=== PATIENT | male | born 1985 | race Caucasian/White ===

== ENCOUNTER 2016-12-30 12:47 | Emergency (ER) | payer OTHER, BC ==
[~2016-12-30] VITALS: Ht 167.6 cm; Wt 111.4 kg
[2016-12-30 12:50] VITALS: TEMP 36.8; Ht 167.6 cm; Wt 111.4 kg
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
[2016-12-30 13:12] LABS: BASO % 0.1 %; BASO ABS # 0.01 K/uL (0-0.2); COMPLETE YES; EOS % 1.1 %; HEMATOCRIT 45.3 % (42-52); IG% 0.3 %; LYMPH % 15.7 %; LYMPH ABS # 1.11 K/uL (1.2-3.4); MEAN CELL VOLUME 87.1 fL (80-100); MEAN CORPUSCULAR HEMOGLOBIN 31.7 pg (25-34); MEAN CORPUSCULAR HGB CONC 36.4 g/dl (32-36); MONO % 5.8 %; PLATELET COUNT 195 K/uL (130-400); WHITE BLOOD COUNT 7.06 K/uL (4.8-10.8)
[2016-12-30 13:21] LABS: ISTAT HEMOGLOBIN 15.6 g/dl (14.0-18.0); ISTAT IONIZED CALCIUM 1.25 mmol/l (1.12-1.32)
[2016-12-30 13:28] LABS: BUN/CREATININE RATIO 23.7 (10-20); CALCIUM 9.3 mg/dl (8.5-10.1)
[2016-12-30] MEDS ORDERED: OPTIRAY 320 IV PRN (13:45)
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
[2016-12-30] MEDS ORDERED: ONDANSETRON INJ 2 MG/ML 2 ML VIAL IV STA (14:27)
[2016-12-30] MEDS ORDERED: MoRPHine SULFATE 4 MG/ML 1 ML CARP\\VIAL IV STA (14:27)
[2016-12-30 14:59] VITALS: BP 143/88; PULSE 76; O2SAT 98
== END 2016-12-30 15:00 | disposition short-term general hospital (02) ==
LOC: EDBD 12:47 → C.EDA 12:48
DX: S32.462A Displaced associated transverse-posterior fracture of left acetabulum, initial encounter for closed fracture (principal); S01.312A Laceration without foreign body of left ear, initial encounter; M25.512 Pain in left shoulder; V43.62XA Car passenger injured in collision with other type car in traffic accident, initial encounter; Z87.891 Personal history of nicotine dependence; Z98.890 Other specified postprocedural states

== ENCOUNTER 2017-01-20 22:04 | Emergency (ER) | payer OTHER, BC ==
[~2017-01-20] VITALS: Ht 167.6 cm; Wt 102.4 kg
[2017-01-20 22:07] VITALS: TEMP 37; Ht 167.6 cm; Wt 102.4 kg
[2017-01-20 22:34] VITALS: O2SAT 97
[2017-01-20 22:42] LABS: BASO % 0.4 %; BASO ABS # 0.03 K/uL (0-0.2); COMPLETE YES; EOS % 3.2 %; IG% 0.1 %; LYMPH % 25.2 %; LYMPH ABS # 1.99 K/uL (1.2-3.4); MEAN CELL VOLUME 90.1 fL (80-100); MEAN CORPUSCULAR HEMOGLOBIN 30.8 pg (25-34); MEAN CORPUSCULAR HGB CONC 34.2 g/dl (32-36); MEAN PLATELET VOLUME 9.8 fL (7.4-10.4); MONO % 6.8 %; NEUT % 64.3 %; PLATELET COUNT 320 K/uL (130-400); RED BLOOD COUNT 4.77 M/uL (4.7-6.1); WHITE BLOOD COUNT 7.91 K/uL (4.8-10.8)
[2017-01-20 22:53] LABS: PROTHROMBIN TIME (PATIENT) 10.3 SECONDS (9.0-12.0)
[2017-01-20 23:00] LABS: CREATININE 1.1 mg/dl (0.60-1.40); POTASSIUM 3.7 mmol/L (3.5-5.1)
[2017-01-20] MEDS ORDERED: CLC100 PO (23:00)
[2017-01-20] MEDS ORDERED: OXYC-164 PO (23:00)
[2017-01-20 23:03] LABS: ALB/GLOB RATIO 0.9 (0.9-2)
[2017-01-20] MEDS ORDERED: KETOROLAC TROMETHAMINE 30 MG/ML VIAL IV STA (23:27)
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
[2017-01-20] MEDS ORDERED: IBUP-1427 PO (23:34)
[2017-01-21 00:16] VITALS: BP 125/84; PULSE 67; O2SAT 96
--- NOTE | 2017-01-21 07:08 | DIAGNOSTIC IMAGING REPORT ---
ULTRASOUND LEFT LOWER EXTREMITY VENOUS CLINICAL HISTORY: Left calf pain and erythema. COMPARISON STUDY: Left lower extremity venous ultrasound dated 01/25/2015. TECHNIQUE: Real-time, grayscale, and color Doppler sonography of the deep veins of the left lower extremity was performed from the inguinal crease to the calf. Compression and augmentation were utilized. FINDINGS: There is nearly occlusive deep venous thrombosis identified in the left calf within one of the peroneal veins. The remaining calf vessels are clear. There is no sonographic evidence of above knee deep venous thrombosis identified in the left lower extremity. The common femoral, superficial femoral, and popliteal veins are patent and normally compressible. The greater saphenous vein and the profunda femoris vein at the junction with the common femoral vein are clear. IMPRESSION: 1. There is nearly occlusive deep venous thrombosis identified in the left calf within one of the peroneal veins. 2. No above knee deep venous thrombosis is identified. Electronically signed by: Yandel Raza M.D. 01/21/2017 7:06 AM Dictated Date/Time: 01/21/2017 7:05 AM
== END 2017-01-21 00:17 | disposition home or self-care (01) ==
LOC: C.EDB 22:05 → C.EDA 01-21 00:17
DX: I82.4Z2 Acute embolism and thrombosis of unspecified deep veins of left distal lower extremity (principal); Z87.81 Personal history of (healed) traumatic fracture; Z96.642 Presence of left artificial hip joint; Z86.718 Personal history of other venous thrombosis and embolism; Z87.891 Personal history of nicotine dependence

== ENCOUNTER → 2017-02-24 | Outpatient (CLI) | payer OTHER, BC ==
[~2017-02-24] MED LIST: CLC100 PO; IBUP-1427 PO; OXYC-164 PO
--- NOTE | 2017-02-24 12:22 | DIAGNOSTIC IMAGING REPORT ---
Venous Doppler left leg VENOUS DOPP LOWER EXT UNILAT CLINICAL HISTORY: LLE PAIN SWELLING pain. Edema. TECHNIQUE: Ultrasound COMPARISON STUDY: 01/20/2017 FINDINGS: Chronic thrombophlebitis 12. Left peroneal veins. This is similar in distribution as compared to the prior exam. All remaining venous structures of the left leg are unremarkable. No evidence for acute or interval change. IMPRESSION: 1. Chronic thrombophlebitis one of the 2 left peroneal veins. 2. No change from the prior study dated 01/20/2017. 3. No evidence for acute deep venous thrombosis Electronically signed by: Monroe Gilliland M.D. 02/24/2017 12:21 PM Dictated Date/Time: 02/24/2017 12:19 PM
== END | disposition home or self-care (01) ==
LOC: C.ULTR 11:13
PROVIDERS: ATTEND Family Medicine
DX: I80.292 Phlebitis and thrombophlebitis of other deep vessels of left lower extremity (principal); M79.662 Pain in left lower leg; M79.89 Other specified soft tissue disorders

== ENCOUNTER 2020-04-15 06:30 | Inpatient (IN) ==
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
--- NOTE | 2020-03-19 14:04 | XRay Report ---
XR chest Pre-admission PA/Lat CLINICAL HISTORY: Preoperative evaluation. COMPARISON STUDY: Chest CT December 30, 2016. Chest radiograph January 15, 2015. FINDINGS: Lung volumes are normal. Lungs are clear. There is no pneumothorax or pleural effusion. Car diac size is normal. Mediastinal contours are normal. There is no evidence for pulmonary edema. Incid ental note is made of a partially visualized anterior cervical spine fusion. IMPRESSION: No acute cardiopulmonary findings. ACT 112: Negative or not required by law. Electronically signed by: Dusty Arango M.D. 03/19/2020 2:03 PM
[2020-03-19 14:05] LABS: Basophils # (auto) 0.02 K/uL (0-0.2); Basophils % (auto) 0.3 %; Eosinophils # (auto) 0.16 K/uL (0-0.5); Eosinophils % (auto) 2.5 %; Hematocrit (blood only) 44.6 % (42-52); Hemoglobin 15.8 g/dL (14.0-18.0); Immature Granulocytes # (auto) 0.01 K/uL (0.00-0.02); Immature Granulocytes % (auto) 0.2 %; Lymphocytes # (auto) 1.51 K/uL (1.2-3.4); Mean Corpuscular Hgb Conc 35.4 g/dL (32-36); Mean Corpuscular Volume 87.5 fL (80-100); Mean Platelet Volume 10.8 fL (7.4-10.4); Monocytes # (auto) 0.45 K/uL (0.11-0.59); Monocytes % (auto) 7.2 %; Neutrophils # (auto) 4.13 K/uL (1.4-6.5); Neutrophils % (auto) 65.8 %; Platelet Count 226 K/uL (130-400); RDW Coefficient of Variation 12.1 % (11.5-14.5); RDW Standard Deviation 38.6 fL (36.4-46.3); White Blood Count 6.28 K/uL (4.8-10.8)
[2020-03-19 14:16] LABS: Creatinine Clr Calc Pharmacy 118.7 ml/min; Est GFR (African American) 101.4; Est GFR (Non-African American) 87.5; Potassium 4.3 mmol/L (3.5-5.1)
[2020-03-19 14:18] LABS: Albumin Globulin Ratio 1.1 (0.9-2); Bilirubin,Total 0.4 mg/dl (0.2-1); Globulin 3.7 gm/dl (2.5-4.0); Partial Thromboplastin Time 28.2 Seconds (21.0-31.0); Prothrombin Time 10.3 Seconds (9.0-12.0); Total Protein 7.7 gm/dl (6.4-8.2)
[2020-03-19 15:18] LABS: Appearance Urine Clear (Clear); Bilirubin Urine Negative (Negative); Blood Urine Negative (Negative); Color Urine Yellow; Glucose Urine UA Negative (Negative); Ketones Urine Trace (Negative); Leukocyte Esterase Urine Negative (Negative); Nitrite Urine Negative (Negative); Protein Urine Negative (Negative); Specific Gravity Urine 1.026 (1.000-1.030); Urobilinogen Urine Negative (Negative); pH Urine 5.5 (4.5-7.5)
--- NOTE | 2020-03-21 08:39 | Electrocardiogram Report ---
Test Reason : Blood Pressure : / mmHG Vent. Rate : 062 BPM Atrial Rate : 062 BPM P-R Int : 172 ms QRS Dur : 088 ms QT Int : 432 ms P-R-T Axes : 070 038 023 degrees QTc Int : 438 ms Normal sinus rhythm Normal ECG When compared with ECG of 15-JAN-2015 10:27, ST no longer depressed in Inferior leads T wave inversion no longer evident in Inferior leads Confirmed by Edgardo Graves ([id number]) on 03/21/2020 8:38:57 AM Referred By: Sharif Joy Confirmed By:Edgardo Graves
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
[~2020-04-15 06:30] MED LIST changes: +ACETAMINOPHEN 500 MG TAB PO SCH; +CEFAZOLIN 3000MG 72.5 ML IV SCH; -CLC100 PO; +CeleBREX 200 MG CAP PO SCH; +FAMOTIDINE 20 MG TAB PO SCH; -IBUP-1427 PO; +LR 500ML BOLUS, THEN 15ML/HR IV SCH; +LR 60ML/HR IV SCH; +METOCLOPRAMIDE HCL 10 MG TABLET PO SCH; -OXYC-164 PO; +ROPIVACAINE 0.5% HCL/PF 150 MG, BUPIVACAINE 0.5% MPF 30 ML, EPINEPHrine 30MG/30ML (OR U... INSTIL SCH; +TRANEXAMIC ACID 1,000 MG **IV Intra-op IV SCH; +TRANEXAMIC ACID 1,000 MG **IV Pre-op IV SCH; +dexAMETHasone 4 MG TAB PO SCH
[2020-04-15] MEDS ORDERED: BUPIVACAINE 0.5 % 5 MG/1 ML PF 10ML VIAL ONE (07:47)
--- NOTE | 2020-04-15 08:23 | History & Physical Bridge Note ---
Date of Service April 15, 2020 History & Physical Bridge Note I have examined the patient, reviewed the History & Physical and in the interval since the performance of the History & Physical I have noted the following changes of clinical significance: no changes noted
[2020-04-15] MEDS ORDERED: ONDANSETRON INJ 2 MG/ML 2 ML VIAL IV PRN ×2 (08:31→11:37)
[2020-04-15] MEDS ORDERED: fentaNYL citrate 100 MCG/2 ML VIAL IV PRN (08:31)
[2020-04-15] MEDS ORDERED: ePHEDrine sulfate 50 MG/ML AMP IV PRN (08:31)
[2020-04-15] MEDS ORDERED: ATROPINE SULFATE 0.1 MG/ML 10ML SYR IV PRN (08:31)
[2020-04-15] MEDS ORDERED: ORTHO JOINT ANESTHETIC ONE (08:36)
[2020-04-15] MEDS ORDERED: BACITRACIN INJ 50,000 UNIT VIAL ONE (08:36)
[2020-04-15] MEDS ORDERED: PROPOFOL IV EMULSION 10 MG/ML 20 ML VIAL IV ONE ×5 (09:48→10:07)
[2020-04-15] MEDS ORDERED: MIDAZOLAM HCL 1 MG/ML 2ML VIAL ONE (09:51)
--- NOTE | 2020-04-15 10:30 | Post Operative Brief Note ---
Immediate Post Op Note v1 Date of Surgery April 15, 2020 Pre & Post Diagnosis Operation Date: 04/15/20 08:30 Pre-Op Diagnosis: Posttraumatic arthritis left hip Post-Op Diagnosis: Posttraumatic arthritis left hip I identified the patient and participated in the time-out.: Yes Procedure Operation Date: 04/15/20 08:30 Actual Procedures p Left Total Hip Arthroplasty(Left) - Sharif Joy Surgeon Sharif Joy Soil Sort Worker Alfredo Bautista PA-C Estimated Blood Loss 75 Findings Consistent with Post-Op Diagnosis Drains Hemovac Drain
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
[2020-04-15] MEDS ORDERED: bisacodyL 10 MG SUPP PR PRN (11:37)
[2020-04-15] MEDS ORDERED: TRAMADOL HCL 50 MG TABLET PO PRN (11:37)
[2020-04-15] MEDS ORDERED: MAGNESIUM HYDROXIDE SUSP 30 ML UDC PO PRN (11:37)
[2020-04-15] MEDS ORDERED: SODIUM CHLORIDE 0.9% 1000ML 1,000 ML IV SCH (11:37)
[2020-04-15] MEDS ORDERED: METOCLOPRAMIDE HCL INJ 5 MG/ML 2 ML VIAL IV PRN (11:37)
[2020-04-15] MEDS ORDERED: OXYCODONE HCL IR 5 MG TAB (IMMEDIATE RELEASE) PO PRN (11:37)
[2020-04-15] MEDS ORDERED: NALOXONE HCL 0.4 MG/1 ML VIAL/CARP IV PRN (11:37)
[2020-04-15] MEDS: ACETAMINOPHEN 500 MG TAB PO SCH ×2 (15:05→21:29)
--- NOTE | 2020-04-15 16:08 | Anesthesiology Progress Note ---
Date of Service April 15, 2020 Anesthesia Post Procedure Vital Signs Vital Signs: Temp Pulse Pulse Resp BP Pulse Ox 04/15/20 15:33 36.5 C 64 16 121/76 96 04/15/20 14:40 36.5 C 65 16 127/79 96 04/15/20 13:30 69 16 140/83 98 04/15/20 12:39 60 16 102/67 97 04/15/20 12:05 36.5 C 59 L 20 130/84 98 04/15/20 11:20 59 L 21 120/72 98 04/15/20 11:10 57 L 19 124/71 97 04/15/20 11:00 63 21 128/79 98 04/15/20 10:52 36.1 C L 69 17 120/79 98 04/15/20 07:23 71 18 135/94 98 04/15/20 06:43 36.6 C 84 18 134/76 97 Transfer of Care Handoff Completed per policy Notes Mental Status: alert / awake / arousable and participated in evaluation Patient Amnestic to Procedure: Yes Nausea / Vomiting: adequately controlled Pain: adequately controlled Airway Patency, RR, SpO2: stable & adequate BP & HR: stable & adequate Hydration State: stable & adequate Neuraxial Anesthesia: was administered and sensory block is resolving Anesthetic Complications: no major complications apparent and Pt Satisfied with anesthetic care
[2020-04-15] MEDS: CEFAZOLIN 2000MG 2,000 MG/15 ML SYR IV SCH ×2 (17:09→23:17)
[2020-04-15] MEDS: DOCUSATE SODIUM 100 MG CAP PO SCH (20:04)
[2020-04-15] MEDS ORDERED: SENNA 8.6 MG TAB PO SCH (21:00)
[2020-04-16] MEDS: ACETAMINOPHEN 500 MG TAB PO SCH (05:38)
[2020-04-16 06:02] LABS: Hematocrit (blood only) 38.8 % (42-52); Hemoglobin 13.6 g/dL (14.0-18.0); Immature Granulocytes # (auto) 0.04 K/uL (0.00-0.02); Immature Granulocytes % (auto) 0.3 %; Lymphocytes # (auto) 1.18 K/uL (1.2-3.4); Lymphocytes % (auto) 9.8 %; Mean Corpuscular Hemoglobin 30.2 pg (25-34); Mean Corpuscular Hgb Conc 35.1 g/dL (32-36); Mean Corpuscular Volume 86.2 fL (80-100); Mean Platelet Volume 10.6 fL (7.4-10.4); Neutrophils # (auto) 10.22 K/uL (1.4-6.5); Neutrophils % (auto) 84.9 %; Platelet Count 209 K/uL (130-400); RDW Coefficient of Variation 12.4 % (11.5-14.5); White Blood Count 12.04 K/uL (4.8-10.8)
[2020-04-16 06:33] LABS: BUN Creatinine Ratio 21.6 (10-20); Calcium 8.4 mg/dl (8.5-10.1); Creatinine Clr Calc Pharmacy 137.4 ml/min; Est GFR (African American) 121.3; Est GFR (Non-African American) 104.6; Potassium 3.7 mmol/L (3.5-5.1)
[2020-04-16] MEDS ORDERED: dexAMETHasone 10 MG in SYRINGE 0 ML IV SCH (08:00)
[2020-04-16] MEDS: DOCUSATE SODIUM 100 MG CAP PO SCH (08:17)
[2020-04-16] MEDS ORDERED: RIVAROXABAN 10 MG TABLET PO SCH (09:00)
[2020-04-16] MEDS ORDERED: MULTIVITAMIN TAB PO SCH (09:00)
--- NOTE | 2020-04-16 09:55 | Orthopedic Progress Note ---
Date of Service April 16, 2020 Assessment & Plan (1) Degenerative joint disease of left hip: Stop day 1 status post left [facility] PT/OT protocols. Weightbearing as tolerated. DVT prophylaxis-rivaroxaban daily, SCDs Pain management as written. Discharge planning-patient planning for discharge to home with outpatient PT. Progressing well. Vital signs are stable. Plan for discharge to home today. Admission and Anticipated Discharge Date Admission Date: April 15, 2020 Subjective Postop day 1 Patient sitting in his chair at the bedside. He is just about to start doing occupational therapy. No complaints this morning. He is feeling well. Pain is controlled. Denies shortness of breath, chest pain, lightheadedness. Physical Exam Physical Exam: Dressings intact. Hemovac functioning. 50 mL's from the previous shift. Calves are soft and nontender. Neurovascular intact. Toes are mobile. He has good dorsiflexion and plantarflexion of the left foot. Results & Data ([facility]) Vital Signs (Past 12 Hours) Vital Signs Temp Pulse Resp BP Pulse Ox 04/16/20 07:05 36.6 C 62 18 115/71 100 04/16/20 03:42 36.5 C 67 20 122/72 98 04/15/20 23:38 36.6 C 61 20 121/71 97 Laboratory Results Laboratory Results WBC 12.04 K/uL (4.8-10.8) H 04/16/20 05:43 RBC 4.50 M/uL (4.7-6.1) L 04/16/20 05:43 Hgb 13.6 g/dL (14.0-18.0) L 04/16/20 05:43 Hct 38.8 % (42-52) L 04/16/20 05:43 MCV 86.2 fL (80-100) 04/16/20 05:43 MCH 30.2 pg (25-34) 04/16/20 05:43 MCHC 35.1 g/dL (32-36) 04/16/20 05:43 RDW Std Deviation 39.0 fL (36.4-46.3) 04/16/20 05:43 RDW Coeff of [place]an 12.4 % (11.5-14.5) 04/16/20 05:43 Plt Count 209 K/uL (130-400) 04/16/20 05:43 MPV 10.6 fL (7.4-10.4) H 04/16/20 05:43 Immature Gran % (Auto) 0.3 % 04/16/20 05:43 Neut % (Auto) 84.9 % 04/16/20 05:43 Lymph % (Auto) 9.8 % 04/16/20 05:43 [place] % (Auto) 5.0 % 04/16/20 05:43 Eos % (Auto) 0.0 % 04/16/20 05:43 Baso % (Auto) 0.0 % 04/16/20 05:43 Neut # (Auto) 10.22 K/uL (1.4-6.5) H 04/16/20 05:43 Lymph # (Auto) 1.18 K/uL (1.2-3.4) L 04/16/20 05:43 [place] # (Auto) 0.60 K/uL (0.11-0.59) H 04/16/20 05:43 Eos # (Auto) 0.00 K/uL (0-0.5) 04/16/20 05:43 Baso # (Auto) 0.00 K/uL (0-0.2) 04/16/20 05:43 Immature Gran # (Auto) 0.04 K/uL (0.00-0.02) H 04/16/20 05:43 PT 10.3 Seconds (9.0-12.0) 03/19/20 12:54 INR 1.0 (0.9-1.1) 03/19/20 12:54 APTT 28.2 Seconds (21.0-31.0) 03/19/20 12:54 PTT Ratio 1.0 03/19/20 12:54 Sodium 139 mmol/L (136-145) 04/16/20 05:43 Potassium 3.7 mmol/L (3.5-5.1) 04/16/20 05:43 Chloride 109 mmol/L (98-107) H 04/16/20 05:43 Carbon Dioxide 25 mmol/L (21-32) 04/16/20 05:43 Anion Gap 5.0 (3-11) 04/16/20 05:43 BUN 20 mg/dl (7-18) H 04/16/20 05:43 Creatinine 0.94 mg/dl (0.6-1.4) 04/16/20 05:43 Est Cr Clr Drug Dosing 137.4 ml/min 04/16/20 05:43 Est GFR ( Amer) 121.3 04/16/20 05:43 Est GFR (Non-Af Amer) 104.6 04/16/20 05:43 BUN/Creatinine Ratio 21.6 (10-20) H 04/16/20 05:43 Glucose 118 mg/dl (70-99) H 04/16/20 05:43 Calcium 8.4 mg/dl (8.5-10.1) L 04/16/20 05:43 Total Bilirubin 0.4 mg/dl (0.2-1) 03/19/20 12:54 AST 18 U/L (15-37) 03/19/20 12:54 ALT 35 U/L (12-78) 03/19/20 12:54 Alkaline Phosphatase 108 U/L (45-117) 03/19/20 12:54 Total Protein 7.7 gm/dl (6.4-8.2) 03/19/20 12:54 Albumin 4.0 gm/dl (3.4-5.0) 03/19/20 12:54 Globulin 3.7 gm/dl (2.5-4.0) 03/19/20 12:54 Albumin/Globulin Ratio 1.1 (0.9-2) 03/19/20 12:54 Urine Color Yellow 03/19/20 12:54 Urine Appearance Clear (Clear) 03/19/20 12:54 Urine pH 5.5 (4.5-7.5) 03/19/20 12:54 Ur Specific [place] 1.026 (1.000-1.030) 03/19/20 12:54 Urine Protein Negative (Negative) 03/19/20 12:54 Urine Glucose (UA) Negative (Negative) 03/19/20 12:54 Urine Ketones Trace (Negative) H 03/19/20 12:54 Urine Blood Negative (Negative) 03/19/20 12:54 Urine Nitrite Negative (Negative) 03/19/20 12:54 Urine Bilirubin Negative (Negative) 03/19/20 12:54 Urine Urobilinogen Negative (Negative) 03/19/20 12:54 Ur Leukocyte Esterase Negative (Negative) 03/19/20 12:54 Nasal Screen MRSA (PCR) Negative (Negative) 03/19/20 12:45 Blood Type A Positive 03/19/20 12:54 Antibody Screen NEGATIVE 03/19/20 12:54
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
== END 2020-04-16 11:58 | disposition home or self-care (01) | DRG 470 ==
LOC: 3E 06:30 → ASU 06:30 → OBSVTOIN 10:57
DX: Z51.81 Encounter for therapeutic drug level monitoring; Z87.891 Personal history of nicotine dependence; Z86.718 Personal history of other venous thrombosis and embolism; Z68.41 Body mass index [BMI] 40.0-44.9, adult; M16.52 Unilateral post-traumatic osteoarthritis, left hip; E66.01 Morbid (severe) obesity due to excess calories